=== PATIENT | male | born 1995 | race Caucasian/White ===

== ENCOUNTER 2023-12-15 11:58 | Emergency (ER) | payer BC ==
[~2023-12-15] VITALS: Ht 170.2 cm; Wt 70.3 kg
[2023-12-15 12:11] VITALS: BP 128/62; TEMP 98.7; O2SAT 100
== END 2023-12-15 13:10 | disposition home or self-care (01) ==
LOC: ER 12:09
DX: R11.2 Nausea with vomiting, unspecified (principal); R19.7 Diarrhea, unspecified